=== PATIENT | female | born 1960 | race Hispanic/Latino ===

== ENCOUNTER 2018-03-21 08:36 | Day surgery (SDC) | payer MEDICAID ==
[2018-03-21 09:10] VITALS: BMI 21.9
[2018-03-21] MEDS ORDERED: Lactated Ringer's 500 ML IV ONE (09:12)
[2018-03-21 11:30] VITALS: BP 127/85; PULSE 75; RESP 15; TEMP 97; O2SAT 100
== END 2018-03-21 14:40 | disposition home or self-care (01) ==
LOC: H.ENDO 08:36
PROVIDERS: ATTEND Internal Medicine Gastroenterology
DX: K22.8 Other specified diseases of esophagus (principal); K44.9 Diaphragmatic hernia without obstruction or gangrene; K29.70 Gastritis, unspecified, without bleeding; R12 Heartburn; K21.9 Gastro-esophageal reflux disease without esophagitis
CPT/HCPCS: 43239; 88305; J2001; J7120